=== PATIENT | male | born 1965 | race Caucasian/White ===

== ENCOUNTER 2018-03-21 02:04 | Emergency (ER) | payer BC | END 2018-03-21 03:13 | disposition home or self-care (01) | LOC: D.ER 02:04 | DX: M54.5 Low back pain (principal); G89.29 Other chronic pain; E11.9 Type 2 diabetes mellitus without complications; Z95.0 Presence of cardiac pacemaker ==

== ENCOUNTER 2018-04-21 22:00 | Emergency (ER) | payer BC ==
[~2018-04-21] VITALS: Ht 182.9 cm; Wt 154.5 kg
[2018-04-21 22:05] VITALS: Ht 182.9 cm; Wt 154.5 kg
[2018-04-21] MEDS ORDERED: JARDIANCE25 MG PO (22:07)
[2018-04-21] MEDS ORDERED: OMEPRAZOLE20 M1 PO (22:07)
[2018-04-21] MEDS ORDERED: ULTRAM50 MG (22:07)
[2018-04-21] MEDS ORDERED: GLUCOPHAGE500 MG PO (22:07)
[2018-04-22] MEDS ORDERED: CYCLOBENZAPRINE10 MG PO (02:31)
[2018-04-22] MEDS ORDERED: IBUPROFEN800 MG PO (02:31)
[2018-04-22] MEDS ORDERED: ACETAMINOPHEN500 M1 PO (02:31)
[2018-04-22 03:32] VITALS: BP 136/88
== END 2018-04-22 03:32 | disposition home or self-care (01) ==
LOC: D.ER 22:00
DX: M54.5 Low back pain (principal); M79.1 Myalgia; M46.1 Sacroiliitis, not elsewhere classified

== ENCOUNTER 2018-12-01 08:50 | Day surgery (SDC) | payer BC ==
[2018-11-30 09:51] LABS: HEMATOCRIT 33.4 % (42.0-54.0); HEMOGLOBIN 10.1 g/dL (13.5-17.5); MCHC 30.2 g/dL (31.0-37.0); MCV 72.8 fL (80.0-100.0); MEAN PLATELET VOLUME 8.4 fL (7.4-10.4); RBC 4.59 10x6/uL (4.20-6.10); RDW 17.6 % (11.5-14.5); WBC 7.5 10x3/uL (4.8-10.8)
[2018-11-30 10:07] LABS: ANION GAP 12.6 mmol/L (8-16); CALCIUM 8.7 mg/dL (8.5-10.1); CARBON DIOXIDE 26.6 mmol/L (21.0-32.0); CREATININE - SERUM 1.2 mg/dL (0.6-1.3); POTASSIUM - SERUM 4.2 mmol/L (3.5-5.1)
[~2018-12-01] VITALS: Ht 182.9 cm; Wt 158.8 kg
[~2018-12-01 08:50] MED LIST: ACETAMINOPHEN500 M1 PO; AMBIEN5 MG PO; CYCLOBENZAPRINE10 MG PO; GLUCOPHAGE500 MG PO; IBUPROFEN800 MG PO; JARDIANCE25 MG PO; LEXAPRO5 MG PO; OMEPRAZOLE20 M1 PO; ULTRAM50 MG
[2018-12-01] MEDS ORDERED: NEURONTIN 300300 MG PO (09:13)
[2018-12-01 09:14] VITALS: Ht 182.9 cm; Wt 158.8 kg
[2018-12-01] MEDS ORDERED: PERCOCET 7.5/321 TAB PO (14:20)
--- NOTE | 2018-12-01 19:15 | OP ---
PATIENT NAME: KANE RICHARDSON MEDICAL RECORD: [id number] :69 LOCATION:[facility] ADMISSION DATE: SURGEON: SOHAN LUCIANO DO DATE OF OPERATION: 12/01/2018 PROCEDURE PERFORMED: Right knee arthroscopy with partial medial meniscectomy. PREOPERATIVE DIAGNOSIS: Right knee medial meniscal tear. POSTOPERATIVE DIAGNOSIS: Right knee medial meniscal tear. INDICATIONS: Mr. Richardson is a 52-year-old male who presented to my office with meniscal-type symptoms of his right knee. He has a pacemaker and is unable to get an MRI. Due to his history of popping, catching, locking, and medial joint line tenderness, I told him that we could scope the knee. He is slightly overweight and he did have some arthritis on his x-ray but not severe. I told him that we could scope his knee, trim out the meniscus, and take a look. He was okay with that. He was aware of risks and benefits of need for further surgery, damage to nerves and vessels; and he signed the consent. SURGEON: Sohan Luciano DO DESCRIPTION OF PROCEDURE: The patient was taken to the operative suite, laid in the supine position, and given general anesthetic. The right lower extremity was prepped and draped in a sterile fashion. An LMA was placed. Prior to that, time-out was performed and everyone was in agreement as to correct side, site, patient, and procedure. The patient was given 3 grams of Ancef preoperatively. The procedure then began with establishing lateral portal with a #11 blade scalpel. The trocar was then entered into the knee. The water was turned on. The suprapatellar pouch was inspected. No loose body was seen in there or the medial or lateral gutters. The medial gutter was inspected. The knee was then flexed down and popped into the medial compartment. A meniscal tear was seen from the mid meniscus to the posterior horn. A medial portal was then established with an 18-gauge spinal needle and a #11 blade scalpel. The trocar was entered in and then a biter. The meniscus was brought back to a stable area and the shaver was brought in to clean that up to a stable spot. 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 Then, the probe was brought in. The ACL was probed and seen to be in good position. It was parked in the notch and the leg was [id number]. Lateral meniscus was inspected as well as the lateral joint. No tears were seen of the lateral meniscus. I did not see any chondromalacia in the lateral joint. The knee was then brought into an extension. The trochlea was inspected and seen to have grade III chondromalacia as well and there was nothing to be done with that. The bladder was then turned off and the suction was turned on. Excess fluid was removed from the knee. The scope portals were then closed with 3-0 Monocryl in inverted interrupted fashion. Steri-Strips, Adaptic, 4 x 4's, ABD, Webril, and Fernando wrap were then placed on the knee. The patient was awakened and taken to recovery in stable condition. BLOOD LOSS: Minimal. COMPLICATIONS: None. TRANSINT:[id number] Voice Confirmation ID: [id number] DOCUMENT ID: [id number] OPERATIVE REPORT [id number] KANE RICHARDSON MICHAEL D, DO at 1915 CC: [id number] DICTATION DATE: 12/01/18 1425 [facility] [employer] TAPER: 12/01/18 1735 [facility] 12/01/18 [facility] [address] [place] [address]
== END 2018-12-01 16:22 | disposition home or self-care (01) ==
LOC: D.OPS 08:50 → D.PAN 10:30 → D.OPS 10:40
PROVIDERS: Anesthesiology
DX: S83.241A Other tear of medial meniscus, current injury, right knee, initial encounter (principal); X58.XXXA Exposure to other specified factors, initial encounter; Z95.0 Presence of cardiac pacemaker; M17.11 Unilateral primary osteoarthritis, right knee; E66.3 Overweight

== ENCOUNTER → 2020-08-18 17:22 | Outpatient (CLI) | payer BC ==
[2018-12-01 09:14] VITALS: BMI 47.6
[~2020-08-18 17:22] MED LIST changes: +NEURONTIN 300300 MG PO; +PERCOCET 7.5/321 TAB PO
== END | disposition home or self-care (01) ==
LOC: D.LDO 17:22
PROVIDERS: ATTEND Orthopaedic Surgery
DX: M17.11 Unilateral primary osteoarthritis, right knee (principal)